=== PATIENT | male | born 1950 | race Caucasian/White ===

== ENCOUNTER 2018-02-23 14:17 | Inpatient (IN) | payer MEDICARE ==
[~2018-02-23] VITALS: Ht 198.1 cm; Wt 142.7 kg
[~2018-02-23 14:17] MED LIST: AUGMENTIN 875-1 EACH PO; PERCOCET 5-3251 EACH PO; SIMVASTATIN40 M1 PO
--- NOTE | 2018-02-23 15:32 | ULTRASOUND REPORT ---
EXAMINATION: US TRIPLEX LOWER EXTREMITY, LEFT CLINICAL INFORMATION: Left lower extremity edema and swelling COMPARISON: None TECHNIQUE: Color-flow triplex imaging with spectral analysis and compression Doppler were performed on the lower extremity. FINDINGS: Respiratory variation, normal compression and augmented flow are noted throughout the lower extremity. The visualized common femoral vein, superficial femoral vein, profunda femoral vein, popliteal vein and midcalf peroneal and posterior tibial venous segments show no evidence of deep venous thrombosis. There is no Houston's cyst. IMPRESSION: No evidence of deep venous thrombosis involving the lower extremity.
[2018-02-23 16:11] LABS: ABSOLUTE BASOPHIL COUNT 0 /CUMM (0.0-0.2); ABSOLUTE EOSINOPHIL COUNT 0.1 /CUMM (0.0-0.7); ABSOLUTE GRANULOCYTE CT 3.4 /CUMM (1.4-6.5); ABSOLUTE LYMPH COUNT 2.5 /CUMM (1.2-3.4); ABSOLUTE MONOCYTE COUNT 0.4 /CUMM (0.10-0.60); BASOPHIL % 0.6 % (0.0-2.0); EOSINOPHIL % 1.2 % (0-5); GRANULOCYTE % 52.8 % (42.2-75.2); HEMATOCRIT 35.3 % (42-52); MEAN CORPUSCULAR HGB 33.5 PG (27.0-31.0); MEAN CORPUSCULAR VOLUME 98.6 FL (80.0-94.0); MEAN PLATELET VOLUME 7.4 FL (7.4-10.4); PLATELET COUNT 202 /CUMM (130-400); RBC DISTRIBUTION WIDTH 14.7 % (11.5-14.5); RED BLOOD CELL CT 3.58 /CUMM (4.70-6.10); WHITE BLOOD CELL COUNT 6.5 /CUMM (4.8-10.8)
--- NOTE | 2018-02-23 16:34 | RADIOLOGY REPORT ---
EXAMINATION: XR KNEE, LEFT CLINICAL INFORMATION: Subcutaneous air. Swelling and redness around a knee laceration COMPARISON: CT 02/18/2018, radiograph 02/18/2018 TECHNIQUE: 6 views of the left knee. FINDINGS: Laceration is again seen superficial to the tibial tubercle. There is hyperdense material seen at the level of the laceration, possibly foreign bodies or packing material. No underlying aggressive osseous abnormality. There is hyperlucency of the soft tissues along the lateral aspect of the knee extending from the visualized distal thigh to the upper calf, nonspecific. No significant joint effusion. Degenerative changes of the patellofemoral compartment. IMPRESSION: 1. Relative lucency within the subcutaneous fat along the lateral aspect of the left lower extremity extending from the distal thigh to the upper calf. This finding is nonspecific and may represent edema infiltrating through the subcutaneous fat although subtle subcutaneous gas could have a similar appearance. CT would be a more specific modality for this evaluation. 2. Radiodensities are seen in the area of the laceration and could represent packing material versus retained foreign bodies. Punctate higher density opacities are seen inferior to the tibial tubercle and are highly suggestive of foreign bodies.
--- NOTE | 2018-02-23 16:48 | ED GENERAL ADULT ---
History of Present Illness General Chief Complaint: Lower Extremity Problems Stated Complaint: PT LEG IS SWELLING UP WERE THE SUTURE ARE Source: patient Exam Limitations: no limitations Vital Signs & Intake/Output Vital Signs & Intake/Output Vital Signs Date Time Temp Pulse Resp B/P B/P Pulse O2 O2 Flow FiO2 Mean Ox Delivery Rate 02/25 0629 97.9 73 16 110/60 95 Room Air 02/24 2145 98.2 72 18 122/68 97 Room Air 02/24 1416 98.0 74 16 138/74 96 Room Air ED Intake and Output 02/25 0000 02/24 1200 Intake Total 820 200 Output Total 1925 1100 Balance -1105 -900 Intake, IV 100 200 Intake, Oral 720 0 Output, Urine 1924 1100 Patient 317 lb Weight Allergies Coded Allergies: No Known Allergies (02/18/18) Triage Note: PT TO ED FOR INFECTION TO RIGHT KNEE. PT WAS SEEN ON 02/18 FOR LEFT KNEE LAC, HAD SUTURES PLACED. LEFT KNEE PINK, WARM TO TOUCH WITH SWELLING. BRUISING ALSO NOTED TO LEFT LEG WITH LE SWELLING. AFEBRILE. PT WAS SENT HOME WITH PO ABX, HAS BEEN TAKING THEM PRESCRIBED. Triage Nurses Notes Reviewed? yes Onset: Abrupt Duration: day(s): (5), constant, continues in ED, getting worse Timing: single episode today Injury Environment: home Severity: moderate, severe Severity Numbers: 8 No Modifying Factors: none HPI: 67-year-old male history of hypertension hyperlipidemia and non-insulin- dependent diabetes mellitus for evaluation of a painful red swollen left knee. Patient was seen here about 5 days ago after a fall with a large laceration to the left knee. The knee was sutured and he was placed on antibiotics. Starting on Wednesday of this week he noticed that the area was then become red swollen and painful. There's been no discharge no fever. He is able to walk is able to bend the knee. He currently is taking Augmentin without any improvement. Tetanus was updated. No numbness or tingling no fevers. No other joint swelling or pain (Ernesto Lopes) Reconcile Medications Metformin HCl 500 MG TABLET 1 TAB PO DAILY DM (Reported) Oxycodone HCl/Acetaminophen (Percocet 5-325 MG Tablet) 5 MG-325 MG TABLET 1-2 TAB PO Q6P PRN PAIN Simvastatin (Simvastatin*) 40 MG TABLET 1 TAB PO QPM CHOLESTEROL (Reported) (Farhan Miller DO) Past History Travel History Traveled to [place] past 21 day No Medical History Any Pertinent Medical History? see below for history Cardiovascular: hyperlipidemia Endocrine: BORDERLINE DM Tetanus Vaccine: 02/18/18 Surgical History Surgical History: non-contributory Psychosocial History What is your primary language Moroccan Tobacco Use: Never used ETOH Use: occasional use Illicit Drug Use: denies illicit drug use Family History Hx Contributory? No (Ernesto Lopes) Review of Systems Review of Systems Constitutional: Reports: no symptoms. EENTM: Reports: no symptoms. Respiratory: Reports: no symptoms. Cardiovascular: Reports: no symptoms. GI: Reports: no symptoms. Genitourinary: Reports: no symptoms. Musculoskeletal: Reports: joint pain, joint swelling, muscle pain. Skin: Reports: see HPI, erythema. Neurological/Psychological: Reports: no symptoms. Hematologic/Endocrine: Reports: no symptoms. Immunologic/Allergic: Reports: no symptoms. All Other Systems: Reviewed and Negative (Ernesto Lopes) Physical Exam Physical Exam General Appearance: well developed/nourished, no apparent distress, alert, awake Head: atraumatic, normal appearance Eyes: Bilateral: normal appearance, EOMI. Ears, Nose, Throat: hearing grossly normal Neck: normal inspection, supple, full range of motion Respiratory: normal breath sounds, chest non-tender, no respiratory distress, lungs clear Cardiovascular: regular rate/rhythm, normal peripheral pulses Peripheral Pulses: 2+ tibialis posterior (R), 2+ tibialis posterior (L), 2+ dorsalis pedis (R), 2+ dorsalis pedis (L) Gastrointestinal: soft, non-tender Back: normal inspection, normal range of motion Extremities: LEFT KNEE: THE LEFT KNEE IS DIFFUSELY SWOLLEN AND ERYTHEMATOUS. tHERE IS A y-SHAPED LARGE LACERATION OVER THE ANTERIOR KNEE WITH SUTURES IN PLACE. tHERE IS NO PURULENT DISCHARGE FROM RANGE OF MOTION IS INTACT THE SWELLING EXTENDS TO THE CALF. nO LYMPHATIC STREAKING NO FOCAL FLUCTUANT AREAS CREPITUS Neurologic/Psych: no motor/sensory deficits, awake, alert, oriented x 3 Skin: intact, normal color, warm/dry Core Measures ACS in differential dx? No CVA/TIA Diagnosis: No Sepsis Present: No Sepsis Focused Exam Completed? No (Ernesto Lopes) Progress Differential Diagnoses I considered the following diagnoses in my evaluation of the patient: [ Cellulitis, abscess, DVT, rhabdomyolysis, septic arthritis, bursitis, osteomyelitis, tenosynovitis] Plan of Care: Orders Procedure Date/time Status Discharge Patient 02/25 UNK Active CULTURE,BODY FLUID 02/25 1840 Active Laboratory Tests 02/25/18 0914: CBC w Diff NO MAN DIFF REQ, RBC 3.15 L, MCV 98.7 H, MCH 34.1 H, MCHC 34.5, RDW 14.6 H, MPV 7.7, Gran % 41.2 L, Lymphocytes % 50.3, Monocytes % 6.3, Eosinophils % 1.5, Basophils % 0.7, Absolute Granulocytes 2.4, Absolute Lymphocytes 3.0, Absolute Monocytes 0.4, Absolute Eosinophils 0.1, Absolute Basophils 0 Microbiology 02/24 1843 BODY FLUID: Body Fluid Culture - RES 02/24 1843 BODY FLUID: Gram Stain - RES Patient is here for evaluation of a wound infection. Patient was seen here 5 days ago for complex left knee laceration that was sutured. Now appears infected. He's been taking Augmentin without any improvement it is getting worse. He has failed outpatient treatment. Labs ultrasound blood cultures ordered patient started on Unasyn. Consent obtained for a sedimentation rate of 114 and a CRP of 4.1 negative elevated white count negative lactic acid. A CT scan was obtained and shows significant edema and a masslike density in the knee. Patient will require admission for IV antibiotics possible orthopedic consult for surgical debridement/washout. Patient also require serial labs IV antibiotics IV fluids IV pain meds case discussed with Dr. Miller he agrees Diagnostic Imaging: Viewed by Me: Radiology Read, CT Scan. Discussed w/RAD: Radiology Read, CT Scan. Radiology Impression: PATIENT: MANDY QUINTERO PRESENT AGE: 67 PATIENT ACCOUNT NO: [id number] : 48 LOCATION: [facility] ORDERING PHYSICIAN: Ernesto RUBY SERVICE DATE: 02/23/18 EXAM TYPE: CAT - CT LOWER EXT W IV CONTRAST EXAMINATION: CT LOWER EXTREMITY WITH CONTRAST, left knee CLINICAL INFORMATION: Pain and swelling. Erythema around a laceration site. COMPARISON: Left knee radiograph 02/23/2018. CT left knee 02/18/2018. Plain film exam left knee 02/18/2018 TECHNIQUE: 95 mL Optiray 320 was administered. Axial images were obtained through the left knee. Coronal and sagittal reformatted images are performed at the CT scanner DLP: 461.21 mGy-cm FINDINGS: There is increasing fluid and soft tissue density mixed with air droplets in a heterogeneous masslike area anterior to the tibia and the tibial tendon. This is worsening of this density since the exam of 02/18/2018. On 02/18/2018 the density measured approximately 3.4 cm superior inferior by 2 cm of depth by 3.8 cm transverse. On today's exam this density now measures about 9 cm superior inferior by about 3 cm of depth by 4.9 cm transverse. There is no underlying bone destruction or abnormal periosteal reaction of the tibia. There is no joint effusion. There is moderate generalized edema in the subcutaneous tissue around the knee. This has increased since prior CAT scan. IMPRESSION: 1. Increasing size of a fluid and masslike soft tissue density mixed with air droplets anterior to the tibia and the patellar tendon. There is no underlying bone abnormality. 2. Increasing edema in the subcutaneous tissue around the knee. DICTATED BY: Cliff Skinner MD DATE/TIME DICTATED:02/23/181729 AIRCRAFT RESTORER :LORI DATE/TIME TRANSCRIBED:02/23/181729 CONFIDENTIAL, DO NOT COPY WITHOUT APPROPRIATE AUTHORIZATION., PATIENT: MANDY QUINTERO PRESENT AGE: 67 PATIENT ACCOUNT NO: [id number] : 48 LOCATION: [facility] ORDERING PHYSICIAN: Ernesto RUBY SERVICE DATE: 02/23/18 EXAM TYPE: RAD - XRY-KNEE, LEFT EXAMINATION: XR KNEE, LEFT CLINICAL INFORMATION: Subcutaneous air. Swelling and redness around a knee laceration COMPARISON: CT 02/18/2018, radiograph 02/18/2018 TECHNIQUE: 6 views of the left knee. FINDINGS: Laceration is again seen superficial to the tibial tubercle. There is hyperdense material seen at the level of the laceration, possibly foreign bodies or packing material. No underlying aggressive osseous abnormality. There is hyperlucency of the soft tissues along the lateral aspect of the knee extending from the visualized distal thigh to the upper calf, nonspecific. No significant joint effusion. Degenerative changes of the patellofemoral compartment. IMPRESSION: 1. Relative lucency within the subcutaneous fat along the lateral aspect of the left lower extremity extending from the distal thigh to the upper calf. This finding is nonspecific and may represent edema infiltrating through the subcutaneous fat although subtle subcutaneous gas could have a similar appearance. CT would be a more specific modality for this evaluation. 2. Radiodensities are seen in the area of the laceration and could represent packing material versus retained foreign bodies. Punctate higher density opacities are seen inferior to the tibial tubercle and are highly suggestive of foreign bodies. DICTATED BY: Elizabeth Arndt MD DATE/TIME DICTATED:02/23/181623 AIRCRAFT RESTORER:LORI DATE/TIME TRANSCRIBED:02/23/181623 CONFIDENTIAL, DO NOT COPY WITHOUT APPROPRIATE AUTHORIZATION. <Electronically signed in Other Vendor System> SIGNED BY: Elizabeth Arndt MD 02/23/181633 Initial ED EKG: none (Ernesto Lopes) Departure Departure Disposition: STILL A PATIENT Condition: Stable Clinical Impression Primary Impression: Cellulitis Qualifiers: Site of cellulitis: extremity Site of cellulitis of extremity: lower extremity Laterality: left Qualified Code: L03.116 - Cellulitis of left lower limb Referrals: Unknown (PCP/Family) Departure Forms: Customer Survey General Discharge Information Admission Note Spoke With: Scott Haque MD Documentation of Exam: Documentation of any treatments & extenuating circumstances including Concerns Regarding Discharge (functional status, medication knowledge or non-compliance, living conditions, etc.) that warrant an admission rather than observation: [IV ANTIBITOICS. SERIAL LABS, ORTHO CONSULT. PT HAS FAILED OUT PT ANTIBITOCS FOR INFECTED WOUND TO LEFT LOWER LEG] (Ernesto Lopes) PA/AREA RELIEF PILOT Co-Sign Statement Statement: ED Attending supervision documentation- [X] I saw and evaluated the patient. I have also reviewed all the pertinent lab results and diagnostic results. I agree with the findings and the plan of care as documented in the PA's/AREA RELIEF PILOT's documentation. [] I have reviewed the ED Record and agree with the PA's/AREA RELIEF PILOT's documentation. [] Additions or exceptions (if any) to the PAs/AREA RELIEF PILOT's note and plan are summarized below: [] (Farhan Miller DO) Critical Care Note Critical Care Note Critical Care Time: non-applicable (Ernesto Lopes)
--- NOTE | 2018-02-23 17:36 | History & Physical ---
Kingsley Bearley 02/23/18 1735: General Information and HPI MD Statement: I have seen and personally examined MANDY QUINTERO and documented this H&P. The patient is a 67 year old M who presented with a patient stated chief complaint of []. Source of Information: patient, family Exam Limitations: no limitations History of Present Illness: 67 year old male with PMH HLD, DM, and h/o pilonidal cyst returns to ED after coming in on February 18 with complex laceration to left knee s/p trip/fall. He sustained a laceration across the left knee joint from a glass bottle in his grocery bag as he fell onto gravel. Per patient and his , there was visible tendon and possible bone exposure. He received an IV antibiotic dose in the ED. His lac was irrigated and closed with multilayer primary suture closure. The wound was dressed with xeroform and DIRK. He was given a prescription for Augmentin and instructed to perform dressing changes bid. He was told to return in 10-14 days for suture removal. He was compliant with this regimen. After a couple days he was instructed to remove the dressing and allow open to air. He states when he did this the knee was originally pink in color and has changed to bright red over the past two days. He decided to return to the ED for a recheck. He denies any associated pain, drainage, fever, chills, n/v/d, chest pain, dizziness, SOB, numbness or tingling, decrease in range of motion of left knee joint. Allergies/Medications Allergies: Coded Allergies: No Known Allergies (02/18/18) Past History Travel History Traveled to [place] past 21 day No Medical History Cardiovascular: hyperlipidemia Endocrine: BORDERLINE DM Tetanus Vaccine: 02/18/18 Surgical History Surgical History: non-contributory Past Family/Social History Psychosocial History Where do you live? Home Who Do You Live With? spouse Services at Home: None Primary Language: Irish Smoking Status: Never Smoked ETOH Use: occasional use, couple glasses of wine per night with dinner Illicit Drug Use: denies illicit drug use Review of Systems Review of Systems Constitutional: Reports: no symptoms. EENTM: Reports: no symptoms. Cardiovascular: Reports: no symptoms. Respiratory: Reports: no symptoms. GI: Reports: no symptoms. Genitourinary: Reports: no symptoms. Musculoskeletal: Reports: joint swelling (left knee). Skin: Reports: erythema. Exam & Diagnostic Data Last 24 Hrs of Vital Signs/I&O Vital Signs Date Time Temp Pulse Resp B/P B/P Pulse O2 O2 Flow FiO2 Mean Ox Delivery Rate 02/23 1822 Room Air 02/23 1422 98.1 91 20 120/76 96 Room Air Intake & Output 02/23 1600 02/23 0800 02/23 0000 Intake Total Output Total Balance Patient 290 lb Weight Weight Reported by Patient Measurement Method Physical Exam General Appearance Alert, Oriented X3, Cooperative, No Acute Distress Skin see extremity exam Skin Temp/Moisture Exam: Warm/Dry HEENT Atraumatic, PERRLA Neck Supple Cardiovascular Regular Rate, Normal S1, Normal S2, No Murmurs Lungs Clear to Auscultation Abdomen Normal Bowel Sounds, Soft, No Tenderness Extremities left lower extremity with edema; erythema; warmth; active oozing of bright red blood; skin is taut Assessment/Plan Assessment: 67 year old male with PMH HLD, DM, and h/o pilonidal cyst returns to ED after coming in on February 18 with complex laceration to left knee s/p trip/fall. He sustained a laceration across the left knee joint from a glass bottle in his grocery bag as he fell onto gravel. Per patient and his , there was visible tendon and possible bone exposure. He received an IV antibiotic dose at that time. His lac was irrigated and closed with multilayer primary suture closure. The wound was dressed with xeroform and DIRK. He was given a prescription for Augmentin and instructed to perform dressing changes bid. Over the next several days he experienced increased swelling, redness, and tight sensation in the left knee. Work up in the ED this visit showed imaging positive for foreign material and increasing fluid and soft tissue density with mixed air droplets anterior to tibia and tibial tendon. Patient will be admitted to general medicine floor for continued care of the following: Problem List: 1. Left Knee erythema and laceration s/p suture closer with foreign body 2. Possible expanding hematoma under left knee laceration repair 3. Transaminitis Admission Data: VS: T98.1 P91 RR20 BP120/76 Sat 96%RA CT LLE: 1. Increasing size of a fluid and masslike soft tissue density mixed with air droplets anterior to the tibia and the patellar tendon. There is no underlying bone abnormality. 2. Increasing edema in the subcutaneous tissue around the knee. Venous Doppler US LLE: negative for DVT XR left knee: IMPRESSION: 1. Relative lucency within the subcutaneous fat along the lateral aspect of the left lower extremity extending from the distal thigh to the upper calf. This finding is nonspecific and may represent edema infiltrating through the subcutaneous fat although subtle subcutaneous gas could have a similar appearance. CT would be a more specific modality for this evaluation. 2. Radiodensities are seen in the area of the laceration and could represent packing material versus retained foreign bodies. Punctate higher density opacities are seen inferior to the tibial tubercle and are highly suggestive of foreign bodies. #Left Knee erythema and laceration s/p suture closer with foreign body -IV abx: Unasyn -Ortho consult for possible OR washout -pain control as needed #Possible expanding hematoma under left knee laceration repair -Orthopedic surgery consult urgent for eval and possible evacuation of hematoma #Transaminitis -continue to monitor -will hold statin for now DVT prophylaxis: ALPS to RLE only; ambulation; lovenox As Ranked By This Provider Problem List: 1. Laceration of knee, left, complicated 2. Hematoma Core Measures/Misc (04/18) Acute Coronary Syndrome ACS Diagnosis: No Congestive Heart Failure Congestive Heart Failure Diagnosis No Cerebrovascular Accident CVA/TIA Diagnosis: No VTE (View Protocol) VTE Risk Factors Age>40 No Mechanical VTE Prophylaxis d/t N/A MechProphylax Ordered No VTE Pharm Prophylaxis d/t NA PharmProphylax ordered Sepsis (View protocol) Sepsis Present: No If YES complete Sepsis Event Note If YES complete Sepsis Event Note Charlene GARCIA,[facility] 02/23/18 4826: General Information and HPI Allergies/Medications Home Med list Amoxicillin/Potassium Clav (Augmentin 875-125 Tablet) 875 MG-125 MG TABLET 1 TAB PO BID COMPLEX LACERATION Metformin HCl 500 MG TABLET 1 TAB PO DAILY DM (Reported) Oxycodone HCl/Acetaminophen (Percocet 5-325 MG Tablet) 5 MG-325 MG TABLET 1-2 TAB PO Q6P PRN PAIN Simvastatin (Simvastatin*) 40 MG TABLET 1 TAB PO QPM CHOLESTEROL (Reported) Core Measures/Misc (04/18) Sepsis (View protocol) If YES complete Sepsis Event Note If YES complete Sepsis Event Note Resident Review Statement Resident Statement: examined this patient, discussed with real estate intern, agreed with real estate intern, discussed with family, reviewed EMR data (avail), discussed with nursing , discussed with case mgmt, reviewed images, amended to note Other Findings: Mr. Quintero is a 67-year-old male past medical history of hyperlipidemia and diabetes mellitus who presents with left knee erythema. The patient came to the ER on February 18 after falling onto his left knee and injuring it. He fell on glass and gravel and in the ER he received stitches as well as a prescription for Augmentin. He went home and took the medications but his knee continued to worsen. He denies any fever, chills, or discharge however. On presentation, vital signs were T 98.1, HR 91, RR 20, BP 08/27/1975, saturating 96% room air. General: Patient appears stated age, alert and orientedx3. HEENT: PERRL. No goiter. No palpable lymph nodes. Cardiovascular: Regular rate and rhythm, no murmurs, rubs, or gallops. Lungs: Clear to auscultation bilaterally. Abdomen: Normal bowel sounds. Nontender to palpation in all four quadrants. Skin: No rashes. Neuro: CN II-XII intact without any focal deficits. Ext: L knee with erythema and stitches with blood. Full range of motion, no tenderness. Laboratories were significant for hemoglobin 12.0, ESR 114, MCV 98.6, glucose 152, AST 95, ALT 75, alkaline phosphatase 166, CRP 4.1. Ultrasound was negative for DVT. Left x-ray of the knee showed lucency and CT showed questionable fluid that was expanding versus prior CT with retained fragments of foreign body.. He will be admitted to general medicine and treated for the following problems: 1. Left knee hematoma with retained foreign bodies 2. Transaminitis 3. Macrocytic anemia #Left knee hematoma with retained foreign bodies: Patient presents after a fall onto gravel and glass with persistent erythema despite being on amox.clavulanic acid. There is also blood exsanguinating from the sutures. He will likely need washout for retained foreign bodies. -Orthopedic surgery consult -Ampicillin/sulbactam #Transaminitis: Unclear etiology. -Hold statin -Repeat LFTs #Macrocytic anemia: There is some active bleeding in the left knee. -Continue to monitor #Chronic medical problems -Continue home medications DVT prophylaxis with heparin Consistent carbohydrate two diet Full code Scott Haque MD 02/23/18 8693: Core Measures/Misc (04/18) Sepsis (View protocol) If YES complete Sepsis Event Note If YES complete Sepsis Event Note Attending MD Review Statement Attending Statement Attending MD Statement: examined this patient, discuss w/resident/PA/PRINTING SHOP SUPERVISOR, agreed w/resident/PA/PRINTING SHOP SUPERVISOR, reviewed EMR data (avail), discussed with case mgmt Attending Assessment/Plan: The patient is a 67 yo male with h/o HL & borderline DM who is visiting [place] from [place] who initially presented in the ED after a fall onto his left knee (gravel/ sharp Snapple bottle) on 02/18 with significant laceration requiring sutures. He was sent home on Augmentin and returns with increased erythema, swelling, and discomfort. No fever, chills or drainage, etc. He had X-ray, venous US (no DVT) and CT of knee done. There was some subtle gas in SQ region and ?retained foreign bodies. Physical Exam: VS: T 98.1, P 91, R 20, BP 120/76 PO 96% HEENT: eyes- PERRLA, EOMI bhaskar- no lesion, moist mucosa Neck: no JVD/adenopathy Chest: clear Cor: RRR nl S1, S2 w/o murm Abd: BS+, soft, NT Ext: + left knee with edema/swelling/warmth in the patellar region with some bruising. Resident expressed some serosanguineous drainage. No purulence. There is FROM of the knee joint. Pulses 2+ Labs/Tests- as above. Impression/Plan: #Cellulitis Left Knee- cannot exclude Septic Bursitis or infected hematoma with swelling/hematoma. Was on po Augmentin after laceration closure. May have retained FB (fell on gravel and Snapple bottle). Plan: Admit to general medical service. Culture blood- IV antibiotics (Unasyn begun in ED) Orthopedic consult for possible opening/washout. #Hyperlipidemia- has been on statin. Plan: Hold statin at present due to mild LFT abnormalities. #Abnormal LFT's- mild increase = ? fatty liver. Plan: OP follow-up.
--- NOTE | 2018-02-23 17:41 | CT SCAN REPORT ---
EXAMINATION: CT LOWER EXTREMITY WITH CONTRAST, left knee CLINICAL INFORMATION: Pain and swelling. Erythema around a laceration site. COMPARISON: Left knee radiograph 02/23/2018. CT left knee 02/18/2018. Plain film exam left knee 02/18/2018 TECHNIQUE: 95 mL Optiray 320 was administered. Axial images were obtained through the left knee. Coronal and sagittal reformatted images are performed at the CT scanner DLP: 461.21 mGy-cm FINDINGS: There is increasing fluid and soft tissue density mixed with air droplets in a heterogeneous masslike area anterior to the tibia and the tibial tendon. This is worsening of this density since the exam of 02/18/2018. On 02/18/2018 the density measured approximately 3.4 cm superior inferior by 2 cm of depth by 3.8 cm transverse. On today's exam this density now measures about 9 cm superior inferior by about 3 cm of depth by 4.9 cm transverse. There is no underlying bone destruction or abnormal periosteal reaction of the tibia. There is no joint effusion. There is moderate generalized edema in the subcutaneous tissue around the knee. This has increased since prior CAT scan. IMPRESSION: 1. Increasing size of a fluid and masslike soft tissue density mixed with air droplets anterior to the tibia and the patellar tendon. There is no underlying bone abnormality. 2. Increasing edema in the subcutaneous tissue around the knee.
[2018-02-23] MEDS ORDERED: METFORMIN HCL500 M3 PO (19:16)
[2018-02-23 20:27] LABS: PT 10.9 SEC (9.4-12.5)
[2018-02-23 20:54] VITALS: BP 142/70
[2018-02-23 23:08] LABS: PT 11.4 SEC (9.4-12.5)
--- NOTE | 2018-02-24 00:13 | Admission Certification ---
Admission Certification Certification Statement - As attending physician, I certify that at the time of - admission, based on clinical presentation, severity of - symptoms, need for further diagnostic testing and - therapeutic interventions, and risk of adverse outcomes - without in-hospital treatment, in my clinical assessment, - this patient requires an acute hospital stay for a minimum - of two nights or longer. I have also considered psychsocial - factors such as support system, advanced age, financial - issues, cognitive issues, and failed out-patient treatments, - past re-admission history, safety of patient, and lack of - compliance as applicable. Specific rationale supporting this admission is: The patient presented with c/o significant swelling, pain, erythema, ? chills related to recent left knee suturing in ED. Will need blood cultures, IV antitiotics (Unasyn at present). Orthopedic consult for potential drainage/ washout.
[2018-02-24 06:13] VITALS: BP 110/56
--- NOTE | 2018-02-24 08:13 | PN- Housestaff ---
See Addendum Subjective Follow-up For: LLE erythema s/p laceration repair with active bleeding Complaints: no complaints Subjective: Patient states he wasn't able to rest well overnight 2/2 noisy environment. He states he continues to have no pain from LLE wound. He denies fever, chills, n/ v/d, chest pain, SOB, numbness or tingling, or decreased ROM. Review of Systems Constitutional: Reports: see HPI. Objective Last 24 Hrs of Vital Signs/I&O Vital Signs Date Time Temp Pulse Resp B/P B/P Pulse O2 O2 Flow FiO2 Mean Ox Delivery Rate 02/24 0613 98.0 76 16 110/56 95 Room Air 02/23 2054 98.6 90 18 142/70 97 02/23 2003 Room Air 02/23 1943 98.5 92 20 120/68 97 Room Air 02/23 1822 Room Air 02/23 1422 98.1 91 20 120/76 96 Room Air Intake & Output 02/24 1600 02/24 0800 02/24 0000 Intake Total 200 419 Output Total 1100 Balance -900 419 Intake, IV 200 119 Intake, Oral 0 300 Number 0 Bowel Movements Output, Urine 1100 Patient 317 lb 290 lb Weight Weight Reported by Patient Measurement Method Physical Exam General Appearance: Alert, Oriented X3, Cooperative, No Acute Distress Skin: see extremity exam Skin Temp/Moisture Exam: Warm/Dry HEENT: Atraumatic, PERRLA Neck: Supple Cardiovascular: Regular Rate, Normal S1, Normal S2 Lungs: Clear to Auscultation Abdomen: Normal Bowel Sounds, Soft, No Tenderness Extremities: LLE s/p lac repair with dry;crusted blood and active oozing bright red blood through surture line. Non tender to palpation. Ecchymosis and erythema present. FROM. Assessment/Plan Assessment: 67 year old male with PMH HLD, DM, and h/o pilonidal cyst returns to ED after coming in on February 18 with complex laceration to left knee s/p trip/fall. He sustained a laceration across the left knee joint from a glass bottle in his grocery bag as he fell onto gravel. Per patient and his , there was visible tendon and possible bone exposure. He received an IV antibiotic dose at that time. His lac was irrigated and closed with multilayer primary suture closure. The wound was dressed with xeroform and DIRK. He was given a prescription for Augmentin and instructed to perform dressing changes bid. Over the next several days he experienced increased swelling, redness, and tight sensation in the left knee. Work up in the ED this visit showed imaging positive for foreign material and increasing fluid and soft tissue density with mixed air droplets anterior to tibia and tibial tendon. Patient will be admitted to general medicine floor for continued care of the following: Problem List: 1. Left Knee erythema and laceration s/p suture closer with foreign body 2. Possible expanding hematoma under left knee laceration repair 3. Transaminitis #Left Knee erythema and laceration s/p suture closer with foreign body-unlikely to be infectious with no leukocytosis or fever. -IV abx: Unasyn -Ortho consult for possible OR washout -pain control as needed #Possible expanding hematoma under left knee laceration repair -Orthopedic surgery consult for eval and possible evacuation of hematoma -patient been NPO since MI for possible interventions -consider removing a few sutures to allow hematoma to evacuate -Monitor hemoglobin 12 on presentation; 10.5 currently #Transaminitis -continue to monitor; decreased levels today -will hold statin for now DVT prophylaxis: ALPS to RLE only; ambulation; lovenox Problem List: 1. Laceration of knee, left, complicated 2. Hematoma Pain Ratin Pain Location: none Pain Goal: Remain pain free Pain Plan: see a/p Tomorrow's Labs & Rationales: cbc
[2018-02-24 08:17] LABS: ABSOLUTE BASOPHIL COUNT 0 /CUMM (0.0-0.2); ABSOLUTE EOSINOPHIL COUNT 0.1 /CUMM (0.0-0.7); ABSOLUTE GRANULOCYTE CT 2.6 /CUMM (1.4-6.5); ABSOLUTE LYMPH COUNT 3.1 /CUMM (1.2-3.4); ABSOLUTE MONOCYTE COUNT 0.4 /CUMM (0.10-0.60); BASOPHIL % 0.6 % (0.0-2.0); EOSINOPHIL % 1.4 % (0-5); GRANULOCYTE % 41.6 % (42.2-75.2); HEMATOCRIT 30.4 % (42-52); MEAN CORPUSCULAR HGB 34.2 PG (27.0-31.0); MEAN CORPUSCULAR HGB CONC 34.6 G/DL (33.0-37.0); MEAN CORPUSCULAR VOLUME 98.9 FL (80.0-94.0); MEAN PLATELET VOLUME 7.9 FL (7.4-10.4); PLATELET COUNT 174 /CUMM (130-400); RBC DISTRIBUTION WIDTH 13.9 % (11.5-14.5); RED BLOOD CELL CT 3.07 /CUMM (4.70-6.10); WHITE BLOOD CELL COUNT 6.3 /CUMM (4.8-10.8)
[2018-02-24 14:16] VITALS: BP 138/74
--- NOTE | 2018-02-24 17:58 | Cons- Orthopedic ---
General Information and HPI Consulting Request Date of Consult: 02/24/18 Requested By: Scott Haque MD Reason for Consult: Left knee soft tissue hematoma Source of Information: patient Exam Limitations: no limitations History of Present Illness: Patient is a 67-year-old male who presented to the emergency room 6 days ago with a laceration over the knee. According to emergency room documents the laceration and injury did not violate the joint. Apparently the knee was washed out and sutured closed by the emergency room provider. Patient return to the ER on February 23 with complaints of increased erythema and swelling. Patient was admitted to medicine with a diagnosis of cellulitis and expanding hematoma. Patient has minimal complaints of pain. Denies fever or chills. Allergies/Medications Allergies: Coded Allergies: No Known Allergies (02/18/18) Home Med List: Amoxicillin/Potassium Clav (Augmentin 875-125 Tablet) 875 MG-125 MG TABLET 1 TAB PO BID COMPLEX LACERATION Metformin HCl 500 MG TABLET 1 TAB PO DAILY DM (Reported) Oxycodone HCl/Acetaminophen (Percocet 5-325 MG Tablet) 5 MG-325 MG TABLET 1-2 TAB PO Q6P PRN PAIN Simvastatin (Simvastatin*) 40 MG TABLET 1 TAB PO QPM CHOLESTEROL (Reported) Past History Medical History Blood Transfusion Hx: Yes Cardiovascular: hyperlipidemia Endocrine: BORDERLINE DM Surgical History Pertinent Surgical History: non-contributory Psychosocial History Where Do You Live? Home Who Do You Live With? spouse Services at Home: None Primary Language: Belarusian Smoking Status: Never Smoked ETOH Use: occasional use, couple glasses of wine per night with dinner Illicit Drug Use: denies illicit drug use Exam & Diagnostic Data Vital Signs and I&O Vital Signs Date Time Temp Pulse Resp B/P B/P Pulse O2 O2 Flow FiO2 Mean Ox Delivery Rate 02/24 1416 98.0 74 16 138/74 96 Room Air 02/24 0613 98.0 76 16 110/56 95 Room Air 02/23 2054 98.6 90 18 142/70 97 02/23 2003 Room Air 02/23 194 98.5 92 20 120/68 97 Room Air 02/23 1822 Room Air Intake & Output 02/24 0800 02/24 0000 02/23 1600 02/23 0800 02/23 0000 Intake Total 340 200 419 Output Total 875 1100 Balance -535 -900 419 Intake, IV 100 200 119 Intake, Oral 240 0 300 Number 0 Bowel Movements Output, Urine 875 1100 Patient 317 lb 290 lb 290 lb Weight Weight Reported by Patient Reported by Patient Measurement Method Physical Exam: On physical exam patient awake and alert. Examination left knee reveals some mild erythema. There is a moderate soft tissue hematoma present. There is minimal bleeding from the suture line. There is no purulent drainage. Patient has no pain with range of motion of the knee. The extremities neurovascularly intact. Assessment/Plan Assessment/Plan Left lower extremity soft tissue hematoma. Plan will be to moderate hematoma. No need for intervention at this point. Consult Acknowledgment - Thank you for your consult request.
[2018-02-24 21:45] VITALS: BP 122/68
[2018-02-25 06:29] VITALS: BP 110/60
--- NOTE | 2018-02-25 08:41 | PN- Housestaff ---
See Addendum Subjective Follow-up For: left lower extremity hematoma s/p complex laceration repair Complaints: no complaints Subjective: Patient states he feels much better after having hematoma expressed by orthopedic surgery yesterday evening. He has no complaints this morning and is ready/eager to go home. Denies fever, chills, n/v/d, chest pain, SOB, abdominal pain. Last BM was overnight. Review of Systems Constitutional: Reports: see HPI. Objective Last 24 Hrs of Vital Signs/I&O Vital Signs Date Time Temp Pulse Resp B/P B/P Pulse O2 O2 Flow FiO2 Mean Ox Delivery Rate 02/25 0629 97.9 73 16 110/60 95 Room Air 02/24 2145 98.2 72 18 122/68 97 Room Air 02/24 1416 98.0 74 16 138/74 96 Room Air Intake & Output 02/25 1600 02/25 0800 02/25 0000 Intake Total 500 480 Output Total 2500 1050 Balance -2000 -570 Intake, IV 260 Intake, Oral 240 480 Output, Urine 2500 1050 Patient 315 lb Weight Physical Exam General Appearance: Alert, Oriented X3, Cooperative, No Acute Distress Skin: Left knee and anterior maurice with ecchymosis and sutures in place. Non tender to palpation. FROM Skin Temp/Moisture Exam: Warm/Dry HEENT: Atraumatic, PERRLA Neck: Supple Cardiovascular: Regular Rate, Normal S1, Normal S2, No Murmurs Lungs: Clear to Auscultation Abdomen: Normal Bowel Sounds, Soft, No Tenderness, obese Extremities: see skin exam Assessment/Plan Assessment: 67 year old male with PMH HLD, DM, and h/o pilonidal cyst returns to ED after coming in on February 18 with complex laceration to left knee s/p trip/fall. He sustained a laceration across the left knee joint from a glass bottle in his grocery bag as he fell onto gravel. Per patient and his , there was visible tendon and possible bone exposure. He received an IV antibiotic dose at that time. His lac was irrigated and closed with multilayer primary suture closure. The wound was dressed with xeroform and DIRK. He was given a prescription for Augmentin and instructed to perform dressing changes bid. Over the next several days he experienced increased swelling, redness, and tight sensation in the left knee. Work up in the ED this visit showed imaging positive for foreign material and increasing fluid and soft tissue density with mixed air droplets anterior to tibia and tibial tendon. Patient will be admitted to general medicine floor for continued care of the following: Problem List: 1. Left Knee erythema and laceration s/p suture closer with foreign body 2. Possible expanding hematoma under left knee laceration repair 3. Transaminitis #Left Knee erythema and laceration s/p suture closer with foreign body-unlikely to be infectious with no leukocytosis or fever. -IV abx: Unasyn: stopped 02/25 -Ortho consult: bedside expression of hematoma -pain control as needed #Possible expanding hematoma under left knee laceration repair -Orthopedic surgery: bedside expression of hematoma -Monitor hemoglobin 12 on presentation; 10.7 currently #Transaminitis -hold statin while inpatient DVT prophylaxis: ALPS to RLE only; ambulation; lovenox Dispo: today with return to ED for suture removal on March 03, 2018. Follow up with PCP Problem List: 1. Hematoma 2. Laceration of knee, left, complicated Pain Ratin Pain Location: none Pain Goal: Remain pain free Pain Plan: see a/p Tomorrow's Labs & Rationales: none
[2018-02-25 10:05] LABS: ABSOLUTE BASOPHIL COUNT 0 /CUMM (0.0-0.2); ABSOLUTE EOSINOPHIL COUNT 0.1 /CUMM (0.0-0.7); ABSOLUTE GRANULOCYTE CT 2.4 /CUMM (1.4-6.5); ABSOLUTE MONOCYTE COUNT 0.4 /CUMM (0.10-0.60); BASOPHIL % 0.7 % (0.0-2.0); EOSINOPHIL % 1.5 % (0-5); GRANULOCYTE % 41.2 % (42.2-75.2); HEMATOCRIT 31.1 % (42-52); MEAN CORPUSCULAR HGB 34.1 PG (27.0-31.0); MEAN CORPUSCULAR HGB CONC 34.5 G/DL (33.0-37.0); MEAN CORPUSCULAR VOLUME 98.7 FL (80.0-94.0); MEAN PLATELET VOLUME 7.7 FL (7.4-10.4); PLATELET COUNT 187 /CUMM (130-400); RBC DISTRIBUTION WIDTH 14.6 % (11.5-14.5); RED BLOOD CELL CT 3.15 /CUMM (4.70-6.10); WHITE BLOOD CELL COUNT 5.9 /CUMM (4.8-10.8)
--- NOTE | 2018-02-25 10:35 | Patient Discharge Instructions ---
Discharge Instructions General Discharge Information You were seen/treated for: Left knee hematoma Watch for these problems: Fever, chest pain, shortness of breath Special Instructions: Please take all medications as directed. Please return to the emergency room on March 01 to remove the stitches. Diet Continue normal diet: Yes Activity Full Activity/No Limits: Yes Acute Coronary Syndrome Inclusion Criteria At DC or during hospital stay patient has or had the following: ACS DIAGNOSIS No Discharge Core Measures Meds if any: Prescribed or Continued at Discharge Meds if any: NOT Prescribed or Continued at Discharge Congestive Heart Failure Inclusion Criteria At DC or during hospital stay patient has or had the following: CHF DIAGNOSIS No Discharge Core Measures Meds if any: Prescribed or Continued at Discharge Meds if any: NOT Prescribed or Continued at Discharge Cerebrovascular accident Inclusion Criteria At DC or during hospital stay patient has or had the following: CVA/TIA Diagnosis No Discharge Core Measures Meds if any: Prescribed or Continued at Discharge Meds if any: NOT Prescribed or Continued at Discharge Venous thromboembolism Inclusion Criteria VTE Diagnosis No VTE Type NONE VTE Confirmed by (Test) NONE Discharge Core Measures - Per Current guidelines, there needs to be overlap - treatment for the first 5 days of Warfarin therapy. - If discharged on Warfarin prior to 5 days of - overlap therapy, the patient will need to be - assessed for post discharge needs including - *Post discharge parental anticoagulation - *Warfarin and/or parental anticoagulation education - *Follow up date to check INR post discharge At least 5 days overlap therapy as Inpatient No Meds if any: Prescribed or Continued at Discharge Note: Overlap Therapy is Warfarin and Anticoagulant Meds if any: NOT Prescribed or Continued at Discharge
--- NOTE | 2018-02-25 11:15 | Discharge Summary ---
Visit Information Visit Dates Admission Date: 02/23/18 Discharge Date: 02/25/18 Hospital Course Course Attending Physician: Scott Haque MD Primary [facility]: Mr Mcdonald is a 67 year old male with PMH HLD, DM, and h/o pilonidal cyst returns to ED after coming in on February 18 with complex laceration to left knee s/p trip/ fall. He sustained a laceration across the left knee joint from a glass bottle in his grocery bag as he fell onto gravel. Per patient and his , there was visible tendon and possible bone exposure. He received an IV antibiotic dose at that time. His lac was irrigated and closed with multilayer primary suture closure. The wound was dressed with xeroform and DIRK. He was given a prescription for Augmentin and instructed to perform dressing changes bid. Over the next several days he experienced increased swelling, redness, and tight sensation in the left knee. Work up in the ED this visit showed imaging positive for foreign material and increasing fluid and soft tissue density with mixed air droplets anterior to tibia and tibial tendon. Patient was admitted to general medicine floor for continued care of the following: Problem List: 1. Left Knee erythema and laceration s/p suture closer with foreign body 2. Possible expanding hematoma under left knee laceration repair 3. Transaminitis Admission Data: VS: T98.1 P91 RR20 BP120/76 Sat 96%RA CT LLE: 1. Increasing size of a fluid and masslike soft tissue density mixed with air droplets anterior to the tibia and the patellar tendon. There is no underlying bone abnormality. 2. Increasing edema in the subcutaneous tissue around the knee. Venous Doppler US LLE: negative for DVT XR left knee: IMPRESSION: 1. Relative lucency within the subcutaneous fat along the lateral aspect of the left lower extremity extending from the distal thigh to the upper calf. This finding is nonspecific and may represent edema infiltrating through the subcutaneous fat although subtle subcutaneous gas could have a similar appearance. CT would be a more specific modality for this evaluation. 2. Radiodensities are seen in the area of the laceration and could represent packing material versus retained foreign bodies. Punctate higher density opacities are seen inferior to the tibial tubercle and are highly suggestive of foreign bodies. #Left Knee erythema and laceration s/p suture closer with foreign body with underlying expanding hematoma was managed by the following: -IV abx: Unasyn for two days then stopped on 02/25 -Ortho consult: bedside failed aspiration attempt then successful applied pressure expression of hematoma. No further follow up required outpatient with surgery. -pain was managed with tylenol #Transaminitis was monitored and statin medication was held while inpatient. DVT prophylaxis: ALPS to RLE only; ambulation; lovenox Discharge instructions given to patient on day of discharge February 25, 2018: Follow up with your PCP when you get back to [place] Do not soak your left leg in a pool, hot tub, lopes or any substance Keep your left leg elevated above the level of your heart while at rest to reduce swelling Avoid taking NSAIDS: Motrin, advil, ibuprofen, naproxen, aleve Take tylenol for pain but do not exceed 3grams in 24 hours. Allergies: Coded Allergies: No Known Allergies (02/18/18) Disposition Summary Disposition Principal Diagnosis: Left Lower extremity hematoma Additional Diagnosis: complex laceration repair Discharge Disposition: home or self care Discharge Instructions General Discharge Information Code Status: Full Code Patient's Diet: regular Patient's Activity: as tolerated Follow-Up Instructions/Appts: Follow up with your PCP when you get back to [place] Do not soak your left leg in a pool, hot tub, lopes or any substance Keep your left leg elevated above the level of your heart while at rest to reduce swelling Avoid taking NSAIDS: Motrin, advil, ibuprofen, naproxen, aleve Take tylenol for pain but do not exceed 3grams in 24 hours. Medications at Discharge Discharge Medications: Stop taking the following medications: Amoxicillin/Potassium Clav (Augmentin 875-125 Tablet) 875 MG-125 MG TABLET ORAL TWICE DAILY Qty = 20 Continue taking these medications: Simvastatin (Simvastatin*) 40 MG TABLET 1 Tablet ORAL Every night Comments: NOT GIVEN IN HOSPITAL Oxycodone HCl/Acetaminophen (Percocet 5-325 MG Tablet) 5 MG-325 MG TABLET 1-2 Tablet ORAL EVERY SIX HOURS NEEDED as needed for PAIN Qty = 20 Comments: NOT GIVEN IN HOSPITAL Metformin HCl (Metformin HCl) 500 MG TABLET 1 Tablet ORAL DAILY Qty = 90 Comments: NOT GIVEN IN HOSPITAL Copies To: Scott Haque MD Attending Review Statement Documenting Attending: Scott Haque MD Other Findings: The patient was seen and discussed with house staff. Agree with the summary and plan of care as outlined. The patient will follow-up in ED at [facility] for suture removal.
== END 2018-02-25 11:28 | DRG 920 ==
LOC: ERH 14:17 → 2NB 17:24 → ERHI 17:24 → ENRESERV 18:13 → ENTRNSPT 19:49 → EDTRNSPT 20:00 → EDTRNSPTSTS 20:00 → 2NB 20:03 → CMPTRNSPT 20:18 → ENPENDDIS 02-25 10:45 → 2NB 02-25 11:28
PROVIDERS: Internal Medicine; Physician Assistant Medical
DX: L76.32 Postprocedural hematoma of skin and subcutaneous tissue following other procedure (principal); L03.116 Cellulitis of left lower limb; M79.5 Residual foreign body in soft tissue; S81.022D Laceration with foreign body, left knee, subsequent encounter; E78.5 Hyperlipidemia, unspecified; E11.9 Type 2 diabetes mellitus without complications; R74.0 Nonspecific elevation of levels of transaminase and lactic acid dehydrogenase [LDH]; Z79.84 Long term (current) use of oral hypoglycemic drugs; D53.9 Nutritional anemia, unspecified; W18.39XD Other fall on same level, subsequent encounter
CPT/HCPCS: 2NBSP; 87075; 36415; 36592; 73560-LT; 87040; 87071; 96374; J1650

== ENCOUNTER 2018-03-03 10:10 | Emergency (ER) | payer MEDICARE ==
[~2018-03-03] VITALS: Ht 198.1 cm; Wt 131.5 kg
[~2018-03-03 10:10] MED LIST changes: +METFORMIN HCL500 M3 PO
[2018-03-03 10:16] VITALS: BP 135/83
--- NOTE | 2018-03-03 10:18 | ED ANIMAL BITE/WOUND CHECK ---
History of Present Illness General Chief Complaint: Suture Removal/Wound Recheck Stated Complaint: SUTURE REMOVL FROM L KNEE Source: patient Exam Limitations: no limitations Vital Signs & Intake/Output Vital Signs & Intake/Output Vital Signs Date Time Temp Pulse Resp B/P B/P Pulse O2 O2 Flow FiO2 Mean Ox Delivery Rate 03/03 1016 98.7 91 18 135/83 98 Room Air Allergies Coded Allergies: No Known Allergies (02/18/18) Reconcile Medications Metformin HCl 500 MG TABLET 1 TAB PO DAILY DM (Reported) Oxycodone HCl/Acetaminophen (Percocet 5-325 MG Tablet) 5 MG-325 MG TABLET 1-2 TAB PO Q6P PRN PAIN Simvastatin (Simvastatin*) 40 MG TABLET 1 TAB PO QPM CHOLESTEROL (Reported) Triage Note: 67 YO MALE TO TRIAGE FOR SUTURE REMOVAL FROM L KNEE. STATES SITE IS STILL BLEEDING AT TIMES. SUTURES PLACED 2 WEEKS AGO. Triage Nurses Notes Reviewed? yes Onset: Abrupt Duration: better Timing: recent history Severity: mild Severity Numbers: 2 HPI: Patient is a 67-year-old male who presents emergency room with request of wound check and suture removal in which old records indicate on February 18 I evaluated patient here [facility] emergency room for a mechanical fall where he suffered a significant laceration to his left anterior tibial region x-rays and CT scan were unremarkable for osseous injury patient had deep absorbable sutures placed and uninterrupted sutures placed to the laceration site patient return to [facility] emergency room on February 23 and was admitted for concerns of cellulitis patient was discharged on February 25. He states that the wounds is well-healing no signs of infection denies any fever chills however is concerned of having to change the dressings twice a day due to mild bleeding to the laceration site. Denies any fever chills denies any new mechanism injury denies a lightheaded sensation dizziness He currently is not on antibiotics (Titus Wills) Past History Travel History Traveled to [place] past 21 day No Medical History Any Pertinent Medical History? see below for history Cardiovascular: hyperlipidemia Endocrine: BORDERLINE DM History of MRSA: No History of VRE: No History of CDIFF: No Tetanus Vaccine: 02/18/18 Surgical History Surgical History: non-contributory Psychosocial History Services at Home None What is your primary language Belizean Tobacco Use: Never used Family History Hx Contributory? No (Titus Wills) Review of Systems Review of Systems Constitutional: Reports: see HPI. Denies: fever. EENTM: Reports: no symptoms. Respiratory: Reports: no symptoms. Cardiovascular: Reports: no symptoms. GI: Reports: no symptoms. Genitourinary: Reports: no symptoms. Musculoskeletal: Reports: see HPI. Skin: Reports: see HPI. Neurological/Psychological: Reports: no symptoms. Hematologic/Endocrine: Reports: see HPI, bleeding. Immunologic/Allergic: Reports: no symptoms. All Other Systems: Reviewed and Negative (Titus Wills) Physical Exam Physical Exam General Appearance: no apparent distress, obese Head: atraumatic Eyes: Bilateral: normal appearance. Ears, Nose, Throat: hearing grossly normal Respiratory: no respiratory distress Neurologic/Psych: no motor/sensory deficits, awake, alert Diagram Body: 1) Noted 12 cm flap laceration with multiple intact sutures and lateral aspect noted dried blood no surrounding warmth erythema or purulent discharge 2) Noted 2.5 cm linear laceration with #6 intact sutures no stranding erythema warmth or discharge margins are revised (Titus Wills) Progress Differential Diagnosis: abscess, cellulitis, joint infection, tenosysnovitis Plan of Care: No concerns of infectious process at this time patient has appropriate range of motion to the left knee he states that the wound is well-healing denies any fevers or signs infection patient is concerned about the mild bleeding however on exam there is no active bleeding patient most likely had a hematoma from previous injury that is discharging from the lateral inferior site of the margins is most likely some of the sutures were removed from his previous admission. Patient was normotensive The 2.5 cm laceration superior of the large laceration was well-healing and which I removed #6 sutures without complications The laceration site was bandaged with abdominal pads and Timothy wrap pre-and post neurovascular was intact I had a long extensive conversation with patient to try to leave the area open when at rest however due to ambulation he can use the dressings to prevent bleeding. Patient will return to emergency room as discussed instructions upon discharge patient looks well no apparent distress and will comply with discharge instructions and had no questions (Titus Wills) Departure Departure Disposition: HOME OR SELF CARE Condition: Stable Clinical Impression Primary Impression: Visit for wound check Secondary Impressions: Visit for suture removal Referrals: Unknown (PCP/Family) Additional Instructions: As discussed apply the bandages with the Timothy wrap when applicable when you are noted to be ambulating during the day however when at rest and much as possible leave the wound open to improve healing. If you develop signs of infection or developing new concerning symptom return to emergency room immediately. Return to emergency room on Wednesday for recheck of the wound and possible suture Departure Forms: Customer Survey General Discharge Information (Titus Wills) PA/SPECIAL FORCES SENIOR SERGEANT Co-Sign Statement Statement: ED Attending supervision documentation- [] I saw and evaluated the patient. I have also reviewed all the pertinent lab results and diagnostic results. I agree with the findings and the plan of care as documented in the PA's/SPECIAL FORCES SENIOR SERGEANT's documentation. [X] I have reviewed the ED Record and agree with the PA's/SPECIAL FORCES SENIOR SERGEANT's documentation. [] Additions or exceptions (if any) to the PAs/SPECIAL FORCES SENIOR SERGEANT's note and plan are summarized below: [] (Venecia GARCIA,Bradley Boogie)
== END 2018-03-03 10:57 ==
LOC: ERH 10:10
DX: Z48.02 Encounter for removal of sutures (principal)

== ENCOUNTER 2018-03-08 10:00 | Emergency (ER) | payer MEDICARE ==
[~2018-03-08] VITALS: Ht 198.1 cm; Wt 131.5 kg
--- NOTE | 2018-03-08 10:05 | ED UPPER/LOWER EXTREMITY COMPL ---
History of Present Illness General Chief Complaint: Suture Removal/Wound Recheck Stated Complaint: SUTURE REMOVAL LT KNEE Source: patient Exam Limitations: no limitations Vital Signs & Intake/Output Vital Signs & Intake/Output Vital Signs Date Time Temp Pulse Resp B/P B/P Pulse O2 O2 Flow FiO2 Mean Ox Delivery Rate 03/08 1006 97.8 98 20 128/80 98 Room Air Allergies Coded Allergies: No Known Allergies (02/18/18) Reconcile Medications Metformin HCl 500 MG TABLET 1 TAB PO DAILY DM (Reported) Oxycodone HCl/Acetaminophen (Percocet 5-325 MG Tablet) 5 MG-325 MG TABLET 1-2 TAB PO Q6P PRN PAIN Simvastatin (Simvastatin*) 40 MG TABLET 1 TAB PO QPM CHOLESTEROL (Reported) Triage Nurses Notes Reviewed? yes Onset: Gradual Duration: better Timing: recent history Severity: mild Severity Numbers: 1 HPI: Patient is a 67-year-old male who presents emergency room with request of wound recheck in which approximately 3 weeks ago patient had a mechanical fall where he struck his left knee to the ground resulting in a complex laceration with patient had multiple absorbable cutaneous sutures and nonabsorbable sutures placed at the time patient return to emergency room 2 days later for concerns of wound infection where sutures were removed patient has been following up to the emergency room every 4-5 days for wound recheck I evaluated patient last week and which the sutures were entirely not ready to be removed Patient is here for wound evaluation states he's had intermittent mild bleeding denies any fever chills purulent discharge and this or swelling or pain. (Titus Wills) Past History Travel History Traveled to [place] past 21 day No Medical History Any Pertinent Medical History? see below for history Cardiovascular: hyperlipidemia Endocrine: BORDERLINE DM History of MRSA: No History of VRE: No History of CDIFF: No Tetanus Vaccine: 02/18/18 Surgical History Surgical History: non-contributory Psychosocial History Services at Home None What is your primary language Russian Family History Hx Contributory? No (Titus Wills) Review of Systems Review of Systems Constitutional: Reports: no symptoms. EENTM: Reports: no symptoms. Respiratory: Reports: no symptoms. Cardiovascular: Reports: no symptoms. Gastrointestinal/Abdominal: Reports: no symptoms. Genitourinary: Reports: no symptoms. Musculoskeletal: Reports: see HPI. Skin: Reports: see HPI. Neurological/Psychological: Reports: no symptoms. Hematologic/Endocrine: Reports: bleeding. Immunological: Reports: no symptoms. All Other Systems: Reviewed and Negative (Titus Wills) Physical Exam Physical Exam General Appearance: no apparent distress, obese Head: atraumatic Eyes: Bilateral: normal appearance. Ears, Nose, Throat: hearing grossly normal Cardiovascular/Respiratory: no respiratory distress Neurologic/Tendon: normal sensation, normal motor functions, normal tendon functions, responds to pain, no evidence tendon injury, no pulse deficit, motor deficit, no response to pain Diagram Legs Front/Back 1) Noted 13 cm flap laceration with #23 sutures with lateral 2 cm wound dehiscence with no purulent discharge no surrounding erythema and warmth Dermatomes intact (Titus Wills) Progress Differential Diagnosis: arterial insufficiency, cellulitis, compartment syndrome , contusion, dislocation, fracture, septic arthritis, sprain, tendon injury Plan of Care: Due to the length of nonabsorbable sutures for approximately 3 weeks, all 23 sutures were removed without complications I then placed benzoin around the margins of the wound and placed multiple Steri- Strips to the laceration site that I placed abdominal pad and Timothy wrap to the region Patient states that they will be [place] for approximately 1 more week or strongly advised patient to follow up and establish plastic surgeon Dr. Jin or Jaron Durbin MD however they're unsure whether there insurance will be covered if not patient will return to emergency room. He was strongly advised to limit the physical activity of his left knee to improve the healing process No signs of infection at this time Upon discharge patient looks well no apparent distress there were given EXTRA bandages (Titus Wills) Departure Departure Disposition: HOME OR SELF CARE Condition: Stable Clinical Impression Primary Impression: Wound of cheek Secondary Impressions: Visit for suture removal, Wound dehiscence Referrals: Davin GARCIA,Lior Rodas MD,Ez Silva (PCP/Family) Additional Instructions: As discussed the Steri-Strips that have been provided to YOU IN the emergency room THESE will fall off an approximate 4-5 days, today please follow up and establish plastics surgeon Dr. Jin or Dr. Rodas for further evaluation treatment If YOU cannot be seen by a plastic SURGERY later this week return to emergency room. If symptoms worsen or if YOU develop a new concerning symptom return to emergency room please limit the physical activity of the left knee no deep knee bends. Departure Forms: Customer Survey General Discharge Information (Titus Wills) PA/STENCIL CUTTER Co-Sign Statement Statement: ED Attending supervision documentation- [X] I saw and evaluated the patient. I have also reviewed all the pertinent lab results and diagnostic results. I agree with the findings and the plan of care as documented in the PA's/STENCIL CUTTER's documentation. [] I have reviewed the ED Record and agree with the PA's/STENCIL CUTTER's documentation. [] Additions or exceptions (if any) to the PAs/STENCIL CUTTER's note and plan are summarized below: [] (Jason Smith DO)
[2018-03-08 10:06] VITALS: BP 128/80
== END 2018-03-08 11:10 ==
LOC: ERH 10:00
DX: Z48.02 Encounter for removal of sutures (principal)

== ENCOUNTER 2018-03-14 11:16 | Emergency (ER) | payer MEDICARE ==
[~2018-03-14] VITALS: Ht 198.1 cm; Wt 131.5 kg
[2018-03-14 13:21] LABS: ABSOLUTE BASOPHIL COUNT 0 /CUMM (0.0-0.2); ABSOLUTE EOSINOPHIL COUNT 0.1 /CUMM (0.0-0.7); ABSOLUTE GRANULOCYTE CT 3.1 /CUMM (1.4-6.5); ABSOLUTE LYMPH COUNT 4.7 /CUMM (1.2-3.4); ABSOLUTE MONOCYTE COUNT 0.5 /CUMM (0.10-0.60); BASOPHIL % 0.5 % (0.0-2.0); EOSINOPHIL % 1.1 % (0-5); HEMATOCRIT 38.1 % (42-52); MEAN CORPUSCULAR HGB 34.3 PG (27.0-31.0); MEAN CORPUSCULAR HGB CONC 34.7 G/DL (33.0-37.0); MEAN CORPUSCULAR VOLUME 98.7 FL (80.0-94.0); MEAN PLATELET VOLUME 8.3 FL (7.4-10.4); PLATELET COUNT 176 /CUMM (130-400); RBC DISTRIBUTION WIDTH 14.3 % (11.5-14.5); RED BLOOD CELL CT 3.86 /CUMM (4.70-6.10); WHITE BLOOD CELL COUNT 8.5 /CUMM (4.8-10.8)
[2018-03-14 13:58] LABS: GRANULOCYTE % 37.1 % (42.2-75.2)
--- NOTE | 2018-03-14 14:34 | ED SKIN/ALLERGY COMPLAINT ---
History of Present Illness General Chief Complaint: Suture Removal/Wound Recheck Stated Complaint: WOUND CHECK Vital Signs & Intake/Output Vital Signs & Intake/Output Vital Signs Date Time Temp Pulse Resp B/P B/P Pulse O2 O2 Flow FiO2 Mean Ox Delivery Rate 03/14 1647 97.9 88 18 135/65 99 Room Air 03/14 1122 98.6 94 18 126/81 97 Room Air Allergies Coded Allergies: No Known Allergies (02/18/18) Reconcile Medications Metformin HCl 500 MG TABLET 1 TAB PO DAILY DM (Reported) Oxycodone HCl/Acetaminophen (Percocet 5-325 MG Tablet) 5 MG-325 MG TABLET 1-2 TAB PO Q6P PRN PAIN Simvastatin (Simvastatin*) 40 MG TABLET 1 TAB PO QPM CHOLESTEROL (Reported) Triage Note: 67M HERE FOR WOUND RECHECK TO LEFT KNEE, CUT ON GLASS 3 WEEKS AGO. HAS STERISTRIPS IN PLACE. REPORTS SCANT SEROSANG DRG. AFEBRILE. NO PAIN, AMBULATORY WITHOUT ISSUE. Past History Travel History Traveled to [place] past 21 day No Medical History EENT: NONE Cardiovascular: hyperlipidemia Respiratory: NONE Gastrointestinal: NONE Hepatic: NONE Renal: NONE Musculoskeletal: NONE Psychiatric: NONE Endocrine: BORDERLINE DM History of MRSA: No History of VRE: No History of CDIFF: No Tetanus Vaccine: 02/18/18 Surgical History Surgical History: non-contributory Psychosocial History Services at Home None What is your primary language Montenegrin Tobacco Use: Never used Progress Plan of Care: Orders Procedure Date/time Status COMPREHENSIVE METABOLIC PANEL 03/14 1250 Complete CBC WITHOUT DIFFERENTIAL 03/14 1250 Complete Laboratory Tests 03/14/18 1309: Anion Gap 7, Estimated GFR > 60, BUN/Creatinine Ratio 11.3, Glucose 138 H, Calcium 9.4, Total Bilirubin 1.1, AST 71 H, ALT 55, Alkaline Phosphatase 127 H , Total Protein 7.7, Albumin 3.8, Globulin 3.9, Albumin/Globulin Ratio 1.0 L, CBC w Diff NO MAN DIFF REQ, RBC 3.86 L, MCV 98.7 H, MCH 34.3 H, MCHC 34.7, RDW 14.3, MPV 8.3, Gran % 37.1 L, Lymphocytes % 55.2 H, Monocytes % 6.1, Eosinophils % 1.1, Basophils % 0.5, Absolute Granulocytes 3.1, Absolute Lymphocytes 4.7 H, Absolute Monocytes 0.5, Absolute Eosinophils 0.1, Absolute Basophils 0 Diagnostic Imaging: Viewed by Me: Ultrasound. Discussed w/RAD: Ultrasound. Radiology Impression: PATIENT: MANDY QUINTERO PRESENT AGE: 67 PATIENT ACCOUNT NO: [id number] : 48 LOCATION: [facility] ORDERING PHYSICIAN: Deana RUBY SERVICE DATE: 03/14/18 EXAM TYPE: US - US-SUPERFICIAL IMAGING EXTREMI EXAMINATION: US SUPERFICIAL IMAGING, EXTREMITY CLINICAL INFORMATION: Erythema and purulent left knee. COMPARISON: CT left lower extremity 02/23/2018. TECHNIQUE: Targeted ultrasound of the left anterior knee was performed. FINDINGS: There are 3 complex fluid collection seen around the left knee. The superior collection measures 4.6 x 1.6 x 3.4 cm. The inferior collection measures 3.6 x 1.7 x 3.6 cm. The inferolateral collection measures 4.3 x 1.3 x 3.1 cm. IMPRESSION: Multiple superficial complex fluid collections around the left knee consistent with abscesses. DICTATED BY: Maxx Peguero MD DATE/TIME DICTATED:03/14/181612 [employer] SUPERVISOR:LORI DATE/TIME TRANSCRIBED:03/14/181612 CONFIDENTIAL, DO NOT COPY WITHOUT APPROPRIATE AUTHORIZATION. <Electronically signed in Other Vendor System> SIGNED BY: Maxx Peguero MD 03/14/181620 Departure Departure Disposition: HOME OR SELF CARE Condition: Stable Clinical Impression Primary Impression: Abscess of knee, left Referrals: Unknown (PCP/Family) Additional Instructions: Take antibiotics as prescribed. Change dressing every other day to left knee. Remove packing material that the doctor placed and exchange it with piece of the material you were given. Keep covered with a dressing. Follow-up with your doctor as soon as you return to [place]. If you experience fevers, chills, abdominal pain, redness spreading up her leg please seek immediate medical attention. Please note that there might be incidental findings in your evaluation that are unrelated to the current emergency department visit. Please notify your primary care doctor about this emergency department visit in order to obtain and review all of the testing performed so that these incidental findings can be monitored as needed. If you had an x-ray performed, please understand that some fractures may not be seen on the initial set of x-rays. If your symptoms persist you might need a repeat set of x-rays to check for such a fracture. If you had a laceration evaluated, please understand that foreign bodies such as glass or wood may not be visible to the naked eye or on plain x-rays. If the wound becomes red, swollen, increasingly more painful or if there is any drainage from the wound, please have it reevaluated by a physician for the possibility of a retained foreign body. If you're unable to follow up as outlined in the discharge instructions please return to the emergency department. Thank you for choosing the [facility] Emergency Department for your care. It was a pleasure to serve you today. Departure Forms: Customer Survey General Discharge Information Prescriptions: Current Visit Scripts Amoxicillin 1 TAB PO BID #20 TAB Sulfamethoxazole/Trimethoprim (Bactrim Ds Tablet) 1 TAB PO BID #20 TAB
--- NOTE | 2018-03-14 16:21 | ULTRASOUND REPORT ---
EXAMINATION: US SUPERFICIAL IMAGING, EXTREMITY CLINICAL INFORMATION: Erythema and purulent left knee. COMPARISON: CT left lower extremity 02/23/2018. TECHNIQUE: Targeted ultrasound of the left anterior knee was performed. FINDINGS: There are 3 complex fluid collection seen around the left knee. The superior collection measures 4.6 x 1.6 x 3.4 cm. The inferior collection measures 3.6 x 1.7 x 3.6 cm. The inferolateral collection measures 4.3 x 1.3 x 3.1 cm. IMPRESSION: Multiple superficial complex fluid collections around the left knee consistent with abscesses.
[2018-03-14] MEDS ORDERED: AMOXICILLIN875 M1 PO (18:28)
[2018-03-14] MEDS ORDERED: BACTRIM DS TAB1 EACH PO (18:28)
--- NOTE | 2018-03-14 18:28 | Procedure ---
Minor Surgical Procedure Note Date of Procedure: 03/14/18 Procedure Note: Evacuation of left knee postoperative hematoma was performed at the bedside without anesthesia. The inferior aspect of the wound was partially open. It was bluntly opened to approximately 1 cm. This allowed manual evacuation of 3 mL clotted blood. The wound was bluntly debrided with cotton swab in all clot was evacuated. In the lateral aspect there was another dehisced portion of the wound. This area was explored with cotton swab as well. There is a large amount of densely adherent partially decomposed clot. This was manually debrided as well. Both wounds were then packed with calcium alginate and wrapped with sterile gauze.
--- NOTE | 2018-03-14 18:33 | Cons- General Surgery ---
General Information and HPI Consulting Request Date of Consult: 03/14/18 Requested By: Deana RUBY Reason for Consult: Wound infection History of Present Illness: This is a 67-year-old male who fell on his left knee 3 weeks ago. He sustained a significant laceration from a glass bottle. He was seen in the emergency room at that time and the wound was irrigated and closed in 2 layers. He was admitted to the hospital a week later for IV antibiotics due to erythema at the site. It improved and he was sent home. Consultation by orthopedic surgery was obtained at that admission who felt that surgical intervention was not warranted. Since then sutures have been removed by the ER. He returns now for follow-up and there is concerned about wound infection. Patient admits that he does not live here and would like to go back to [place] where he lives. He denies fevers chills or sweats. There is no pain at the site. He notes intermittent bloody drainage from the incision. Allergies/Medications Allergies: Coded Allergies: No Known Allergies (02/18/18) Home Med List: Amoxicillin 875 MG TABLET 1 TAB PO BID abscess Metformin HCl 500 MG TABLET 1 TAB PO DAILY DM (Reported) Oxycodone HCl/Acetaminophen (Percocet 5-325 MG Tablet) 5 MG-325 MG TABLET 1-2 TAB PO Q6P PRN PAIN Simvastatin (Simvastatin*) 40 MG TABLET 1 TAB PO QPM CHOLESTEROL (Reported) Sulfamethoxazole/Trimethoprim (Bactrim Ds Tablet) 800 MG-160 MG TABLET 1 TAB PO BID abscess Past History Medical History EENT: NONE Cardiovascular: hyperlipidemia Respiratory: NONE Gastrointestinal: NONE Hepatic: NONE Renal: NONE Musculoskeletal: NONE Psychiatric: NONE Endocrine: obesity, BORDERLINE DM Surgical History Pertinent Surgical History: non-contributory Psychosocial History Who Do You Live With? spouse Services at Home: None Primary Language: Italian Review of Systems Review of Systems: No fevers chills or sweats. No dyspnea on exertion. No exertional chest pain. Wound drainage per HPI. Remainder 12 points negative Exam & Diagnostic Data Vital Signs and I&O Vital Signs Date Time Temp Pulse Resp B/P B/P Pulse O2 O2 Flow FiO2 Mean Ox Delivery Rate 03/14 1647 97.9 88 18 135/65 99 Room Air 03/14 1122 98.6 94 18 126/81 97 Room Air Intake & Output 03/14 1600 03/14 0803/14 0000 03/13 1600 03/13 0800 03/13 0000 Intake Total Output Total Balance Patient 290 lb Weight Physical Exam: General: He is obese looks his stated age. No distress HEENT: Anicteric PERRLA EOMI Chest: Nontender normal excursion normal effort Abdomen: Soft nontender nondistended Extremity: Left knee with horseshoe-shaped flap injury. The skin is well approximated with mild erythema around it. There are 2 open areas one inferiorly and one laterally. The lateral wound is larger measuring 2 x 2 cm. There is serosanguineous drainage. Inferiorly there is a large amount of expressible partially lysed clot. Last 24 Hours of Labs: Laboratory Tests 03/14 1309 Chemistry Sodium (137 - 145 mmol/L) 137 Potassium (3.5 - 5.1 mmol/L) 4.3 Chloride (98 - 107 mmol/L) 105 Carbon Dioxide (22 - 30 mmol/L) 25 Anion Gap (5 - 16) 7 BUN (9 - 20 mg/dL) 9 Creatinine (0.7 - 1.2 mg/dL) 0.8 Estimated GFR (>60 ml/min) > 60 BUN/Creatinine Ratio (7 - 25 %) 11.3 Glucose (65 - 99 mg/dL) 138 H Calcium (8.4 - 10.2 mg/dL) 9.4 Total Bilirubin (0.2 - 1.3 mg/dL) 1.1 AST (17 - 59 U/L) 71 H ALT (21 - 72 U/L) 55 Alkaline Phosphatase (< 127 U/L) 127 H Total Protein (6.3 - 8.2 g/dL) 7.7 Albumin (3.5 - 5.0 g/dL) 3.8 Globulin (1.9 - 4.2 gm/dL) 3.9 Albumin/Globulin Ratio (1.1 - 2.2 %) 1.0 L Hematology CBC w Diff NO MAN DIFF REQ WBC (4.8 - 10.8 /CUMM) 8.5 RBC (4.70 - 6.10 /CUMM) 3.86 L Hgb (14.0 - 18.0 G/DL) 13.2 L Hct (42 - 52 %) 38.1 L MCV (80.0 - 94.0 FL) 98.7 H MCH (27.0 - 31.0 PG) 34.3 H MCHC (33.0 - 37.0 G/DL) 34.7 RDW (11.5 - 14.5 %) 14.3 Plt Count (130 - 400 /CUMM) 176 MPV (7.4 - 10.4 FL) 8.3 Gran % (42.2 - 75.2 %) 37.1 L Lymphocytes % (20.5 - 51.1 %) 55.2 H Monocytes % (1.7 - 9.3 %) 6.1 Eosinophils % (0 - 5 %) 1.1 Basophils % (0.0 - 2.0 %) 0.5 Absolute Granulocytes (1.4 - 6.5 /CUMM) 3.1 Absolute Lymphocytes (1.2 - 3.4 /CUMM) 4.7 H Absolute Monocytes (0.10 - 0.60 /CUMM) 0.5 Absolute Eosinophils (0.0 - 0.7 /CUMM) 0.1 Absolute Basophils (0.0 - 0.2 /CUMM) 0 Assessment/Plan Assessment/Plan My impression is that the majority of the erythema related to his wound is due to significant retained hematoma. Please see my procedure note. A large amount of hematoma was evacuated from the inferior wound. The lateral wound was bluntly debrided and both were packed. It do not feel that operative debridement is necessary however he will require lots of care to get this to heal. Recommend discharging him from the ER with oral antibiotics. Patient would like to return to [place]. I feel it is safe for him to do so as long as he gets there promptly and can see his primary care physician upon his arrival. He is instructed to change the alginate dressing every other day. Consult Acknowledgment - Thank you for your consult request.
[2018-03-14 18:49] VITALS: BP 129/74
== END 2018-03-14 18:52 ==
LOC: ERH 11:16
PROVIDERS: Physician Assistant
DX: T81.4XXA Infection following a procedure, initial encounter (principal); X58.XXXA Exposure to other specified factors, initial encounter; Y93.9 Activity, unspecified; Y92.9 Unspecified place or not applicable
CPT/HCPCS: 76881